=== PATIENT | male | born 1995 | race American Indian/Alaskan Native ===

== ENCOUNTER 2017-01-29 11:41 | Outpatient (CLI) | payer BC ==
--- NOTE | 2017-01-29 13:05 | XRay Report ---
Bilateral knee: History: Knee pain. Findings: No bony or articular abnormality. No fracture, dislocation or soft tissue calcification. Impression: No bony or articular abnormality is right and left knee.
--- NOTE | 2017-01-29 13:06 | XRay Report ---
Left ankle 2 views: History: Pain. Findings: No articular abnormality. No fracture dislocation or soft tissue calcification. Impression: No definite bony or articular abnormality.
== END 2017-01-29 11:42 | disposition home or self-care (01) ==
LOC: XRAY 11:41
PROVIDERS: ATTEND Family Medicine
DX: M25.561 Pain in right knee (principal); M25.562 Pain in left knee; M25.572 Pain in left ankle and joints of left foot; S89.92XD Unspecified injury of left lower leg, subsequent encounter; S89.91XD Unspecified injury of right lower leg, subsequent encounter; Y93.73 Activity, racquet and hand sports